=== PATIENT | female | born 1935 | race Two or more races ===

== ENCOUNTER 2022-06-05 09:00 | Inpatient (IN) | payer OTHER ==
[~2022-06-05] VITALS: Ht 154.9 cm; Wt 56.2 kg
[2022-06-05] MEDS ORDERED: LASIX20 MG PO (11:06)
[2022-06-05] MEDS ORDERED: GABAPENTIN300 M2 PO (11:07)
[2022-06-05] MEDS ORDERED: METFORMIN HCL500 M3 PO (11:07)
[2022-06-05] MEDS ORDERED: VASOTEC20 M1 PO (11:07)
[2022-06-05] MEDS ORDERED: EVISTA60 MG PO (11:08)
[2022-06-05] MEDS ORDERED: SYNTHROID88 MCG PO (11:08)
[2022-06-05] MEDS ORDERED: ZOCOR20 MG PO (11:08)
[2022-06-05] MEDS ORDERED: LANTUS SOL100 UNIT/1 (11:09)
[2022-06-05] MEDS ORDERED: HUMALOG100 UNIT/2 (11:09)
[2022-06-05] MEDS ORDERED: PLAVIX75 MG PO (11:09)
[2022-06-05] MEDS ORDERED: D3 + K2 DOTS 11 EACH PO (11:10)
[2022-06-05] MEDS ORDERED: FML5 ML OP (11:10)
[2022-06-05] MEDS ORDERED: CARVEDILOL6.25 M1 PO (11:10)
[2022-06-10] MEDS ORDERED: MAXIMUM D3325 MCG (09:39)
== END 2022-06-12 16:43 | disposition home or self-care (01) | DRG 741 ==
LOC: OB/GYN 06-10 06:16 → O/R 06-10 06:16 → SURG 06-10 07:00 → OB/GYN 06-10 13:45
PROVIDERS: ADMIT Specialist; ATTEND Specialist
PROC: 0UT7FZZ Resection of Bilateral Fallopian Tubes, Via Natural or Artificial Opening With Percutaneous Endoscopic Assistance (ICD-10-PCS; 2022-06-10)
PROC: 0UT2FZZ Resection of Bilateral Ovaries, Via Natural or Artificial Opening With Percutaneous Endoscopic Assistance (ICD-10-PCS; 2022-06-10)
PROC: 07BC4ZZ Excision of Pelvis Lymphatic, Percutaneous Endoscopic Approach (ICD-10-PCS; 2022-06-10)
PROC: 3E1M48Z Irrigation of Peritoneal Cavity using Irrigating Substance, Percutaneous Endoscopic Approach (ICD-10-PCS; 2022-06-10)
PROC: 0UT9FZZ Resection of Uterus, Via Natural or Artificial Opening With Percutaneous Endoscopic Assistance (ICD-10-PCS; principal; 2022-06-10 07:00)
DX: C54.1 Malignant neoplasm of endometrium (principal); Z20.822 Contact with and (suspected) exposure to COVID-19